=== PATIENT | male | born 1955 | race Caucasian/White ===

== ENCOUNTER 2017-11-18 15:20 | Emergency (ER) | payer BC ==
[2017-11-18 15:48] LABS: BASO % 0.3 % (0.0-1.0); EOS # 0.3 10^3/uL (0.0-0.50); EOS % 2.4 % (0.0-3.0); HEMATOCRIT 41.5 % (42.0-52.0); HEMOGLOBIN 12.7 g/dl (13.5-17.5); IMMATURE GRANULOCYTE % 0.7 % (0-3.0); LYMPH # 3.1 10^3/uL (1.5-4.5); LYMPH % 26.7 % (24.0-44.0); MEAN CORPUSCULAR HEMOGLOBIN 22.3 pg (27.0-33.0); MEAN CORPUSCULAR HGB CONC 30.6 g/dl (32.0-36.5); MEAN CORPUSCULAR VOLUME 72.8 fl (80.0-96.0); MONO # 0.9 10^3/uL (0.0-0.8); MONO % 7.6 % (0.0-5.0); NEUTROPHILS # 7.2 10^3/uL (1.8-7.7); NEUTROPHILS % 62.3 % (36.0-66.0); PLATELET COUNT, AUTOMATED 280 10^3/uL (150-450); RED CELL DISTRIBUTION WIDTH 20.6 % (11.5-14.5); WHITE BLOOD COUNT 11.5 10^3/uL (4.0-10.0)
[2017-11-18] MEDS: ASPIRIN 81 MG CHEW TABLET PO (15:48)
[2017-11-18] MEDS: PANTOPRAZOLE 40MG INJ (PROTONIX) (C9113) IV (15:48)
[2017-11-18] MEDS: NITROGLYCERIN 0.4 MG SUBL TABLET SL ×3 (15:49→15:59)
[2017-11-18 16:08] LABS: INR 0.89; PROTHROMBIN TIME 12.1 SECONDS (12.1-14.4)
[2017-11-18 16:09] LABS: PARTIAL THROMBOPLASTIN TIME 26.2 SECONDS (25.4-37.6)
[2017-11-18 16:15] LABS: ALBUMIN 3.8 GM/DL (3.2-5.2); ALBUMIN/GLOBULIN RATIO 1.12 (1.00-1.93); ALKALINE PHOSPHATASE 109 U/L (45-117); ALT/SGPT 22 U/L (12-78); ANION GAP 12 MEQ/L (8-16); AST/SGOT 19 U/L (7-37); BILIRUBIN,DIRECT 0.2 MG/DL (0.0-0.2); BILIRUBIN,TOTAL 0.6 MG/DL (0.2-1.0); BLOOD UREA NITROGEN 14 MG/DL (7-18); CALCIUM LEVEL 9.1 MG/DL (8.8-10.2); CARBON DIOXIDE LEVEL 26 MEQ/L (21-32); CHLORIDE LEVEL 103 MEQ/L (98-107); CPK CREATINE PHOSPHOKINASE 182 U/L (39-308); CREATININE FOR GFR 1.27 MG/DL (0.70-1.30); GLOMERULAR FILTRATION RATE > 60.0 (>49); GLUCOSE, FASTING 118 MG/DL (70-100); LIPASE 122 U/L (73-393); SODIUM LEVEL 141 MEQ/L (136-145); TOTAL PROTEIN 7.2 GM/DL (6.4-8.2); TROPONIN I < 0.02 NG/ML (< 0.10)
[2017-11-18 16:23] LABS: CK-MB VALUE MASS 1.4 NG/ML (<3.6); MB/CK RELATIVE INDEX 0.76 (< OR =4)
[2017-11-18] MEDS: GI COCKTAIL 50ML BTL(HYOSCYAMINE/MAALOX/LIDOCAINE VISCOUS)(1:3:1) PO (16:37)
[2017-11-18] MEDS: POTASSIUM CHLORIDE 10 MEQ SR TABLET PO (17:55)
[2017-11-18 18:08] LABS: CPK CREATINE PHOSPHOKINASE 296 U/L (39-308); TROPONIN I 0.27 NG/ML (< 0.10)
[2017-11-18 18:09] LABS: CK-MB VALUE MASS 7.6 NG/ML (<3.6); MB/CK RELATIVE INDEX 2.56 (< OR =4)
[2017-11-18] MEDS ORDERED: HEPARIN 25,000 UNITS/250 ML D5W BAG (100 UNITS/ML) As Ordered (18:54)
[2017-11-18] MEDS: CLOPIDOGREL 300 MG TAB (PLAVIX) PO (18:56)
[2017-11-18] MEDS: HEPARIN DRIP 25,000 UNITS in APPROPRIATE DILUENT 1 EA IV (18:56)
[2017-11-18] MEDS: MORPHINE 2 MG/ML 1ML SYRINGE (J2270) IV (18:56)
[2017-11-18] MEDS: HEPARIN SOD (PORCINE) 5000 UNITS/ML VIAL IV (18:57)
== END 2017-11-18 19:58 | disposition short-term general hospital (02) ==
LOC: M ED 15:20
DX: I20.0 Unstable angina (principal); R94.31 Abnormal electrocardiogram [ECG] [EKG]; K21.9 Gastro-esophageal reflux disease without esophagitis; E78.5 Hyperlipidemia, unspecified; M10.9 Gout, unspecified; Z79.899 Other long term (current) drug therapy
CPT/HCPCS: C9113

== ENCOUNTER 2018-10-26 09:55 | Emergency (ER) | payer BC ==
[~2018-10-26] VITALS: Ht 177.8 cm; Wt 86.9 kg
[~2018-10-26 09:55] MED LIST: ALLO100T; ATOR80TA59; HYDR-3716; KLOR10TA76; PANT40TA3 PO; SERT-138; TRAM50TA2
[2018-10-26] MEDS ORDERED: VITA500045 (10:05)
[2018-10-26] MEDS ORDERED: TOPR25TA (10:05)
[2018-10-26] MEDS ORDERED: CLOP75TA2 (10:05)
[2018-10-26] MEDS ORDERED: HYDR-3719 (10:05)
[2018-10-26] MEDS ORDERED: PROAAER10 (10:05)
[2018-10-26] MEDS ORDERED: ASPI81CH33 (10:05)
[2018-10-26] MEDS ORDERED: VARE05TA (10:05)
[2018-10-26] MEDS ORDERED: TRIA37.5 (10:05)
--- NOTE | 2018-10-26 11:04 | REP ---
LEFT SHOULDER: Three views. HISTORY: Injury in a fall. Comparison is made with a portable chest x-ray from November 18, 2017. FINDINGS: There is evidence of subcortical cyst formation producing some lucency in the glenoid. This is unchanged from the November 28, 2017 teen prior study and is felt to be benign. Glenohumeral and acromioclavicular joints are normally aligned. There is mild osteoarthritic spurring at the AC joint. No fracture or subluxation is seen. 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 Mild osteoarthritic change in the AC joint. No acute bony abnormality. Electronically Signed by Castro Gonzalez MD 10/26/2018 09:03 P
[2018-10-26 11:37] VITALS: BP 115/73
== END 2018-10-26 11:40 | disposition home or self-care (01) ==
LOC: M ED 09:55
DX: S46.812A Strain of other muscles, fascia and tendons at shoulder and upper arm level, left arm, initial encounter (principal); W01.198A Fall on same level from slipping, tripping and stumbling with subsequent striking against other object, initial encounter; Y92.096 Garden or yard of other non-institutional residence as the place of occurrence of the external cause; I11.9 Hypertensive heart disease without heart failure; K21.9 Gastro-esophageal reflux disease without esophagitis; I25.10 Atherosclerotic heart disease of native coronary artery without angina pectoris; E78.5 Hyperlipidemia, unspecified; F32.9 Major depressive disorder, single episode, unspecified; Z95.5 Presence of coronary angioplasty implant and graft; M54.9 Dorsalgia, unspecified; G89.29 Other chronic pain; F17.200 Nicotine dependence, unspecified, uncomplicated; Z88.5 Allergy status to narcotic agent; Z79.899 Other long term (current) drug therapy; Z79.02 Long term (current) use of antithrombotics/antiplatelets; Z79.891 Long term (current) use of opiate analgesic; Z79.82 Long term (current) use of aspirin

== ENCOUNTER 2021-02-18 13:39 | Emergency (ER) | payer BC ==
[~2021-02-18] VITALS: Ht 175.3 cm; Wt 96.9 kg
[~2021-02-18 13:39] MED LIST changes: +ASPI81CH33; +CLOP75TA2; +HYDR-3719; -KLOR10TA76; +PANT40TA29 PO; -PANT40TA3 PO; +POTA-136; +PROAAER10; +TOPR25TA; +TRIA37.5; +VARE05TA; +VITA500045
[2021-02-18] MEDS ORDERED: ACETAMINOPHEN 500 MG TAB PO ONE (16:00)
[2021-02-18 16:34] VITALS: O2SAT 95
[2021-02-18 17:03] LABS: RSV AMPLIFICATION NEGATIVE (NEGATIVE)
--- NOTE | 2021-02-18 17:59 | CR.PDOC ---
General Date of Consultation: Feb 18, 2021 Consultation REASON FOR CONSULTATION/CHIEF COMPLAINT: monoclonal antibodies HISTORY OF PRESENT ILLNESS: 65 yo male for one day history of fever, chills, myalgia, cough nonproductive and occasional dyspnea on exertion. Patient denies any recent travel or sick contacts. Patient states he did have his Covid vaccination in May and June he is not sure if it was Pfizer or Materna. On examination patient denies chest pain, shortness of breath, headaches, changes in vision, abdominal pain, nausea, vomiting, diarrhea or depressed mood. ALLERGIES: Please see below. HOME MEDICATIONS: Please see below. PAST MEDICAL HISTORY: #CAD/OH/stent #HTN #HLD #DM #COPD FAMILY HISTORY: Father: , CAD/CABG, lung CA Mother: , does not know if any medical issues SOCIAL HISTORY: Quit smoking 2018, prior to that about 2ppd - around 80 pack year history REVIEW OF SYSTEMS: Negative except as per HPI. PHYSICAL EXAMINATION: Vital Signs: reviewed General: NAD, lying comfortably in bed HEENT: NC/AT, EOMI Neck: supple, no masses Chest: scattered wheezing, speaking full sentences easily Heart: +S1S2, RRR Abd: soft, NT, ND, +BS Ext: no edema Skin: no rashes MSK: full ROM at large joints Neuro: no gross focal deficits Psych: AAOx3 LABORATORY DATA: Please see below. A/P: 65-year-old male presents for 1 day history of fever, chills, body aches, cough and found to be Covid positive. Past medical history significant for coronary artery disease status post OH status post coronary stents, diabetes, hypertension, hyperlipidemia and COPD. #COVID-19 infection - with multiple risk factors - could benefit from monoclonal antibody treatment - orders entered, consent obtained Disposition: Patient to return 02/19/21 for monoclonal antibody treatment Vital Signs/I&O Vital Signs Date Time Temp Pulse Resp B/P (MAP) Pulse Ox O2 Delivery O2 Flow Rate FiO2 02/18/21 16:40 Room Air 02/18/21 16:40 20 96 02/18/21 13:40 99.4 78 Laboratory Data Labs 24H Laboratory Tests 2 02/18/21 15:58: Coronavirus (COVID-19)(PCR) POSITIVEA, Influenza Type A (RT-PCR) NEGATIVE, Influenza Type B (RT-PCR) NEGATIVE, Respiratory Syncytial Virus (PCR) NEGATIVE Allergies Coded Allergies: codeine (Verified Allergy, Intermediate, itches skin, 10/26/18) Home Medications Scheduled Pantoprazole Sodium (Pantoprazole Sodium) 40 Mg Tab, 1 TAB PO DAILY for 30 Days, #30 (Reported) Miscellaneous Medications Albuterol Sulfate (Proair Hfa) 8.5 Gm Hfa.aer.ad, (Reported) Allopurinol (Allopurinol) 100 Mg Tab, (Reported) Aspirin (Aspirin) 81 Mg Tab.chew, (Reported) Atorvastatin Calcium (Atorvastatin Calcium) 80 Mg Tab, (Reported) Clopidogrel Bisulfate (Clopidogrel) 75 Mg Tablet, (Reported) Ergocalciferol (Vitamin D2) (Vitamin D2) 50,000 Unit Capsule, (Reported) Hydrocodone/Acetaminophen (Hydrocodone-Acetamin 10-325 mg) 1 Each Tablet, (Reported) Metoprolol Succinate (Toprol Xl) 25 Mg Tab.er.24h, (Reported) Potassium Chloride (Klor-Con M10) 10 Meq Tabcr, (Reported) Sertraline HCl (Sertraline HCl) 100 Mg Tab, (Reported) Tramadol HCl (Tramadol HCl) 50 Mg Tab, (Reported) Triamterene/Hydrochlorothiazid (Triamterene-Hctz 37.5-25 mg Tb) 1 Each Tablet, (Reported) Varenicline (Chantix) 0.5 Mg Tablet, (Reported) NAINA NGUYEN MD Feb 18, 2021 17:59
[2021-02-18 18:54] VITALS: BP 137/68
== END 2021-02-18 18:59 | disposition home or self-care (01) ==
LOC: M ED 13:39
DX: U07.1 COVID-19 (principal); R50.9 Fever, unspecified; I25.2 Old myocardial infarction; E11.9 Type 2 diabetes mellitus without complications; I10 Essential (primary) hypertension; E78.5 Hyperlipidemia, unspecified; J44.9 Chronic obstructive pulmonary disease, unspecified; K21.9 Gastro-esophageal reflux disease without esophagitis; F32.9 Major depressive disorder, single episode, unspecified; F41.9 Anxiety disorder, unspecified; M10.9 Gout, unspecified; F17.200 Nicotine dependence, unspecified, uncomplicated; Z88.6 Allergy status to analgesic agent; Z79.899 Other long term (current) drug therapy

== ENCOUNTER 2021-02-19 12:32 | Outpatient (CLI) | payer BC ==
--- NOTE | 2021-02-18 18:01 | IPNPDOC ---
Text Note Date of Service The patient was seen on 02/18/21. NOTE Consultation documented in ED visit account. NAINA NGUYEN MD Feb 18, 2021 18:01
[~2021-02-19] VITALS: Ht 177.8 cm; Wt 97.7 kg
[~2021-02-19 12:32] MED LIST changes: +ALBUTEROL 90 MCG/ACT 8GM HFA INHALER INH PRN; +ALBUTEROL SULFATE 2.5 MG/0.5 ML INH NEB SOLN INH PRN; +CASIRIVIMAB/IMDEVIMAB 1,200 MG in NS 250 ML IV ONE; +EPINEPHrine INJ 1 MG/ML 1ML AMP IM PRN; +NS 1,000 ML IV SCH; +diphenhydrAMINE 50MG/ML VIAL (J1200) IV PRN; +methylPREDNISolone 125MG 2ML VIAL IV PRN
[2021-02-19 17:09] VITALS: BP 126/81
[2021-02-19 19:08] VITALS: BP 141/77
== END 2021-02-19 20:05 | disposition home or self-care (01) ==
LOC: M OPCLI4 12:32 → M 4MAIN 12:36 → M OPCLI4 20:05
PROVIDERS: ATTEND General Practice
DX: U07.1 COVID-19 (principal)

== ENCOUNTER 2022-06-30 06:52 | Emergency (ER) | payer BC, OTHER ==
[~2022-06-30] VITALS: Ht 177.8 cm; Wt 90.9 kg
[~2022-06-30 06:52] MED LIST changes: -ALBUTEROL 90 MCG/ACT 8GM HFA INHALER INH PRN; -ALBUTEROL SULFATE 2.5 MG/0.5 ML INH NEB SOLN INH PRN; -CASIRIVIMAB/IMDEVIMAB 1,200 MG in NS 250 ML IV ONE; -EPINEPHrine INJ 1 MG/ML 1ML AMP IM PRN; -NS 1,000 ML IV SCH; -diphenhydrAMINE 50MG/ML VIAL (J1200) IV PRN; -methylPREDNISolone 125MG 2ML VIAL IV PRN
[2022-06-30] MEDS ORDERED: fentaNYL 100 MCG/2 ML INJECTION IV PRN (07:25)
[2022-06-30] MEDS ORDERED: ONDANSETRON 4MG 2ML VIAL IV ONE (07:25)
[2022-06-30] MEDS ORDERED: GI COCKTAIL 50ML BTL(HYOSCYAMINE/MAALOX/LIDOCAINE VISCOUS)(1:3:1) PO ONE (07:25)
[2022-06-30] MEDS ORDERED: NITROGLYCERIN 0.4MG SUBL TABLET SL PRN (07:25)
[2022-06-30] MEDS ORDERED: ASPIRIN 81MG CHEW TABLET PO ONE (07:25)
[2022-06-30 07:51] LABS: BASO % 0.4 % (0.0-1.0); EOS # 0.2 10^3/uL (0.0-0.5); EOS % 2.4 % (0.0-3.0); HEMATOCRIT 42.4 % (42.0-52.0); HEMOGLOBIN 13.3 g/dl (13.5-17.5); LYMPH # 1.8 10^3/uL (1.5-5.0); LYMPH % 22.8 % (24.0-44.0); MEAN CORPUSCULAR HEMOGLOBIN 27.5 pg (27.0-33.0); MEAN CORPUSCULAR HGB CONC 31.4 g/dl (32.0-36.5); MEAN CORPUSCULAR VOLUME 87.8 fl (80.0-96.0); MONO # 0.7 10^3/uL (0.0-0.8); MONO % 8.3 % (2.0-8.0); NEUTROPHILS # 5.2 10^3/uL (1.5-8.5); NEUTROPHILS % 65.6 % (36.0-66.0); PLATELET COUNT, AUTOMATED 220 10^3/uL (150-450); RED BLOOD COUNT 4.83 10^6/uL (4.30-6.10)
[2022-06-30 08:02] LABS: INR 0.87; PARTIAL THROMBOPLASTIN TIME 30.7 SECONDS (24.8-34.2)
[2022-06-30] MEDS ORDERED: ISOVUE-370 76% 100ML VIAL As Ordered ONE (08:11)
[2022-06-30 08:13] LABS: LIPASE 68 U/L (12-53)
[2022-06-30 08:15] LABS: CK-MB VALUE MASS < 1.0 NG/ML (<3.6)
[2022-06-30 08:16] LABS: ALBUMIN 3.8 G/DL (3.2-5.2); ALKALINE PHOSPHATASE 109 U/L (46-116); ALT/SGPT 22 U/L (7.0-40); AST/SGOT 8 U/L (<34); BILIRUBIN,DIRECT 0.2 MG/DL (<0.4); BILIRUBIN,TOTAL 0.5 MG/DL (0.3-1.2); CPK CREATINE PHOSPHOKINASE 109 U/L (46-171); MB/CK RELATIVE INDEX 0.91 (< OR =4); TOTAL PROTEIN 6.6 G/DL (5.7-8.2)
[2022-06-30 08:20] LABS: FREE T4 0.95 NG/DL (0.89-1.76); THYROID STIMULATING HORMONE 2.992 uIU/ML (0.55-4.78)
[2022-06-30 09:25] LABS: CK-MB VALUE MASS < 1.0 NG/ML (<3.6)
[2022-06-30 09:26] LABS: CPK CREATINE PHOSPHOKINASE 100 U/L (46-171)
[2022-06-30 09:35] LABS: RSV AMPLIFICATION NEGATIVE (NEGATIVE)
[2022-06-30 11:19] LABS: CK-MB VALUE MASS < 1.0 NG/ML (<3.6)
[2022-06-30 11:20] LABS: CPK CREATINE PHOSPHOKINASE 105 U/L (46-171); MB/CK RELATIVE INDEX 0.95 (< OR =4)
[2022-06-30 12:39] VITALS: BP 130/66
== END 2022-06-30 12:42 | disposition home or self-care (01) ==
LOC: M ED 06:52
DX: U07.1 COVID-19 (principal); R07.9 Chest pain, unspecified; K21.9 Gastro-esophageal reflux disease without esophagitis; I25.2 Old myocardial infarction; I25.10 Atherosclerotic heart disease of native coronary artery without angina pectoris; I10 Essential (primary) hypertension; E78.5 Hyperlipidemia, unspecified; Z95.5 Presence of coronary angioplasty implant and graft; Z88.5 Allergy status to narcotic agent; Z87.891 Personal history of nicotine dependence; Z79.82 Long term (current) use of aspirin; Z79.899 Other long term (current) drug therapy
CPT/HCPCS: 71045; 71275; 74177; 80047; 80076; 82550; 82553; 83690; 83880; 84439; 84443; 84484; 85025; 85610; 85730; 87631; 93005; 93041; 94760; 96374; 99285; J2405